=== PATIENT | female | born 2000 | race Caucasian/White ===

== ENCOUNTER 2021-11-26 03:16 | Emergency (ER) | payer BC, SELFPAY ==
[2021-11-26 03:20] VITALS: BP 133/74; PULSE 92; RESP 16; TEMP 36.7; O2SAT 100
--- NOTE | 2021-11-26 03:44 | ED.NAVMDI ---
HPI - Nausea/Vomiting/Diarrhea General Chief complaint: Nausea/Vomiting/Diarrhea Stated complaint: n/v for 2 hours Time Seen by Provider: 11/26/21 03:33 Source: patient Mode of arrival: ambulatory Limitations: no limitations History of Present Illness HPI Narrative: Patient is a 21-year-old female complaining of nausea and vomiting that started 2 hours prior to arrival. Patient describes her vomit is nonbilious nonbloody, of previously ingested food. Patient also states that she was having burning sensation, epigastric area. Patient denies any fever, chills, diarrhea, or urinary symptoms. Patient denies any chest pain or shortness of breath Related Data Allergies Allergy/AdvReac Type Severity Reaction Status Date / Time No Known Allergies Allergy Verified 11/26/21 03:23 Review of Systems Review of Systems: All systems reviewed & are unremarkable except as noted in HPI and below Constitutional: Constitutional: Denies body ache(s), Denies chills, Denies excessive sweating, Denies fatigue, Denies fever(s), Denies headache(s), Denies lethargy, Denies malaise, Denies weakness and Denies weight loss Eyes: Eyes: Denies blurry vision, Denies change in vision and Denies loss of vision ENT: Denies dizziness, Denies ear discharge, Denies headache(s), Denies lip swelling, Denies epistaxis, Denies nasal congestion, Denies neck pain, Denies throat swelling and Denies tongue swelling Cardiovascular: Cardiovascular: Denies chest pain, Denies chest pain at rest, Denies chest pain with activity, Denies diaphoresis, Denies rapid heart rate, Denies edema, Denies irregular heart rhythm, Denies lightheadedness, Denies palpitations, Denies dyspnea and Denies dyspnea on exertion Respiratory: Respiratory: Denies chest congestion, Denies cough, Denies hemoptysis, Denies dyspnea and Denies dyspnea on exertion Gastrointestinal: Gastrointestinal: Denies abdominal pain, Denies melena, Denies hematochezia, Denies diarrhea and Denies hematemesis Musculoskeletal: Musculoskeletal: Denies abnormal gait, Denies deformity, Denies joint swelling, Denies limited range of motion, Denies neck pain and Denies numbness Neurologic: Denies Abnormal speech present, Denies abnormal gait, Denies confusion, Denies dizziness, Denies headache(s), Denies focal weakness, Denies loss of vision, Denies numbness, Denies Other visual disturbances, Denies Sensory deficit (Neuro) and Denies weakness Psychiatric: Psychiatric: Denies confusion, Denies depression, Denies auditory hallucinations, Denies homicidal ideation and Denies suicidal ideation Endocrine: Endocrine: Denies cold intolerance, Denies excessive sweating, Denies fatigue, Denies heat intolerance and Denies palpitations Hematologic/Lymphatic: Hematologic/Lymphatic: Denies easy bleeding and Denies easy bruising Allergic/Immunologic: Allergic/Immunologic: Denies lip swelling, Denies throat swelling and Denies tongue swelling PMFSH Comments Past medical history: None Family history: None Social history: Vapes, occasional EtOH use, no drug use Exam Const: General: cooperative, healthy appearing, comfortable, no acute distress, well developed, alert and awake; No confusion Orientation/consciousness: oriented to person, oriented to place, oriented to time, patient oriented x3 and No confusion Limitations: no limitations HENMT: Head: normal to inspection, normocephalic and atraumatic Ears: hearing grossly normal bilaterally, TM normal on the right and TM normal on the left General nose exam: Normal external nose present, Normal nares present and No nasal discharge present Face and sinus: normal facial exam Mouth: Yes Normal oral and palatal mucosa present, Yes lip normal, Yes tongue normal and Yes oropharynx normal Throat: posterior oropharynx normal, tonsils normal and uvula midline Eyes: General: appearance normal, both eyes and all related structures Pupils: Equal, round and reactive pupils present EOM: EOMs intact bilate
[2021-11-26] MEDS: SODIUM CHLORIDE 0.9% IV 1,000 ML 999 ML IV CONT (03:52)
[2021-11-26] MEDS: ONDANSETRON INJ 4 MG/2 ML VIAL IV PUSH (03:53)
[2021-11-26 04:14] LABS: Basophils Percent Auto 0.4 % (0.2-1.2); Eosinophils Absolute Auto 0.1 K/mm3 (0-0.3); Eosinophils Percent Auto 0.8 % (0-4.4); Hemoglobin 14.4 g/dL (12.0-15.0); Immature Granulocyte Absolute 0.03 K/mm3 (0.00-0.031); Immature Granulocyte Percent A 0.4 % (0-0.5); Lymphocytes Absolute Auto 0.49 K/mm3 (0.9-3.2); Lymphocytes Percent Auto 6.6 % (18.3-44.2); Mean Corpuscular HGB Conc 33.5 g/dl (32-36); Mean Corpuscular Hemoglobin 30.2 pg (26-34); Mean Corpuscular Volume 90.1 fl (80-100); Monocytes Absolute Auto 0.3 K/mm3 (0.1-0.6); Monocytes Percent Auto 3.5 % (2.6-8.5); Neutrophils Absolute Auto 6.5 K/mm3 (1.3-6.7); Neutrophils Percent Auto 88.3 % (45.5-73.1); Platelet Count Result 209 k/mm3 (150-375); Red Blood Count 4.77 M/mm3 (4.2-5.4); Red Cell Distribution Width 11.7 % (11.5-14.5); White Blood Count 7.4 K/mm3 (4.5-10.0)
[2021-11-26 04:22] VITALS: BP 111/50; PULSE 77; RESP 18; O2SAT 100
[2021-11-26 04:30] LABS: Alanine Aminotransferase 18 U/L (4-35); Albumin Level 4.3 g/dL (3.5-5.1); Alkaline Phosphatase 48 U/L (38-126); Anion Gap 7 mmol/L (8-16); Aspartate Amino Transferase 57 U/L (14-36); Bilirubin,Total 1.3 mg/dL (0.2-1.3); Blood Urea Nitrogen 14 mg/dL (7-17); Calcium 8.5 mg/dL (8.4-10.2); Carbon Dioxide 27 mmol/L (22-30); Chloride 103 mmol/L (98-107); Estimated CRCL calculation 72 ml/min; Estimated Glomerular Filt Rate > 60; Glucose 98 mg/dL (65-110); Lipase 91 U/L (23-300); Potassium 3.9 mmol/L (3.4-5.0); Sodium 137 mmol/L (137-145)
[2021-11-26 05:08] VITALS: BP 112/62; PULSE 83; RESP 18; O2SAT 100
== END 2021-11-26 05:09 | disposition home or self-care (01) ==
PROVIDERS: Emergency Provider Emergency Medicine
DX: K29.00 Acute gastritis without bleeding (principal); R11.2 Nausea with vomiting, unspecified; F17.290 Nicotine dependence, other tobacco product, uncomplicated
CPT/HCPCS: 36415; 80053; 81025; 83690; 85025; 96361; 96374; 99284; J2405; J7030

== ENCOUNTER 2025-06-20 10:01 | Emergency (ER) | payer BC, SELFPAY ==
--- OUTSIDE RECORDS SUMMARY | 2010-11-07 19:00 | XMS_ITS | Continuity of Care Document ---
Author Organization [facility] Address [address] [place] [address] Phone Care Team Providers Care Airplane Pilot Crop Dusting Name Role Phone Conversion MD, Doctor Unavailable Unavailabl e Medications Medication Instructions Dosage Effective Dates (start - stop) Status Comments CILOXAN 0.3% DROPS 2 BID - Active treat for 1 week SULFACETAMIDE SODIUM 10% DROPS 2 TID - Active treat for 5 days ERYTHROMYCIN 5MG/G APPLICS 1 TID - Active treat for 5 days AMOXICILLIN 250MG/5ML ML 5 TID - No Longer Active AUGMENTIN 400-57MG TABS 1 BID - No Longer Active SULFAMETHOXAZOLE/TRIM ETHOPRIM 5 BID - No Longer Active AUGMENTIN 200-28.5/5 ML 5 BID - No Longer Active Advance Directives Directive Yes / No Effective Date File Name No Information Encounters Encounter Description Practice Location Reason(s) For Visit Diagnoses Date Provider Providers Copied on Encounter [facility], [address], [place], [place], [address], tel:[phone] Conversion Department No Information 6201 1 Conversion Doctor. [address], [place], [address], . [facility], [address], [place], [place], [address], tel:[phone] Anthony Bhatia PNEUMONIA, ORGANISM NOS Dec-2 5-200 3 Abhijit Mckay. [address], [address], [place], [place], [address]. tel:[phone] [facility], [address], [place], [place], [address], [place] tel:[phone] Anthony Bhatia LOCAL SKIN INFECTION NOS 7-200 0 Conversion Doctor. [facility] [place], [address], . Family History Family Member Type Diagnosis Age At Onset No Information Immunizations Vaccine Date Status Comments 16948 - Pneumococcal_PCV administered Fatemeh rce: Source Unspecified 51031 - Polio_OPV_IPV administered Source : Source Unspecified 48707 - DTaP_DTP_DT_PEDS, Hib administere d Source: Source Unspecified 44290 - Varicella administered Source: So urce Unspecified 56698 - MMR administered Source: Source Unspecified 62171 - Pneumococcal_PCV administered Fatemeh rce: Source Unspecified 03492 - Hepatitis_B administered Source: Source Unspecified 37612 - Hib administered Source: Source Unspecified 55056 - DTaP_DTP_DT_PEDS administered Fatemeh rce: Source Unspecified 35926 - Hib administered Source: Source Unspecified 29575 - Pneumococcal_PCV administered Fatemeh rce: Source Unspecified 66603 - DTaP_DTP_DT_PEDS administered Fatemeh rce: Source Unspecified 41205 - Polio_OPV_IPV administered Source : Source Unspecified 63590 - Pneumococcal_PCV administered Fatemeh rce: Source Unspecified 61085 - Polio_OPV_IPV administered Source : Source Unspecified 91311 - Hib administered Source: Source Unspecified 17905 - DTaP_DTP_DT_PEDS administered Fatemeh rce: Source Unspecified 17180 - Hepatitis_B administered Source: Source Unspecified Payers Payer name Insurance type Covered green party ID Authoriza tion(s) No Information Social History Type Description Quantity Date Captured Comments Sex Female Smoking Status No Information Chief Complaint And Reason For Visit No Information Reason For Referral Reason For Referral No Information History Of Present Illness Encounter Date Complaint History Of Prese nt Illness No Information Functional Status Date Functional Assessmen t No Information Instructions Date Instruction Additional Infor mation No Information Assessments Type Assessment Date No Information Patient Care Teams Name Effective Dates (start - stop) Status Members No Information
--- OUTSIDE RECORDS SUMMARY | 2016-05-27 04:00 | XMS_ITS | Continuity of Care Document ---
Author Organization [facility] Address [address] [place] [address] Phone Care Team Providers Care Retort Furnace Operator Name Role Phone Jarvis Billy DPM Unavailable Unavailable Allergies, Adverse Reactions, Alerts Substance Reaction Status Criticality No Known Allergies Active No Inform ation Procedures Procedure Date OFFICE/OUTPATIENT VISIT NEW Advance Directives Directive Yes / No Effective Date File Name No Information Encounters Encounter Description Practice Location Reason(s) For Visit Diagnoses Date Provider Providers Copied on Encounter OFFICE/OUTPAT IENT VISIT NEW [facility] , [address], [place], [address], [place] tel:[phone] [facility] Plantar wartPain of left foot Wenceslao Conley. [address], [place], [place], [address] . tel:[phone] Referring Provider: Layla Polk, [address], [place], [address]. tel:[phone] Family History Family Member Type Diagnosis Age At Onset Mother Problem (finding) Alive and well Father Problem (finding) Alive and well Payers Payer name Insurance type Covered democrat ID Authoriza tipurvi(s) Blue Access Choice PPO E2 OT [id number] Social History Type Description Quantity Date Captured Comments Alcohol Use Details No Caffeine Use Details Unknown Tobacco Use Status Never smoked tobacco 2015 Smoking Status Never smoker Non-Smoking Tobacco Use Details : No Details Available : No Details Available Sex Female Vital Signs Date / Time: Height Weight BMI Pulse Rate Blood Pressure Temperature Respiratory Rate Body Surface Area Head Circumference Head Circ. Percentile Wt./Az. Percentile BMI percentile Pulse Ox Inhaled Ox 10:19 AM 63.00 in 49.895 kg (110.00 lbs) 19.4 8 kg/m eter (2) 133/85 mm[Hg] 34 Chief Complaint And Reason For Visit No Information Reason For Referral Reason For Referral No Information History Of Present Illness Encounter Date Complaint History Of Prese nt Illness No Information Functional Status Date Functional Assessmen t No Information Instructions Date Instruction Additional Infor mation Discussed treatment options Rela steven to Pain of left foot Assessments Type Assessment Date assessment Plantar wart assessment Pain of left foot Patient Care Teams Name Effective Dates (start - stop) Status Members No Information
--- NOTE | 2025-06-20 10:12 | ED_ITS ---
HPI - Headache General Chief Complaint: Headache Stated Complaint: Headache/Nausea Time Seen by Provider: 06/20/25 10:25 Mode of arrival: ambulatory Limitations: no limitations History of Present Illness HPI Narrative: 25-year-old female presents with concern for headache. Reports she woke up this morning with a headache and has had nausea. She denies any vomiting. She denies history of migraines. She reports she feels like she lost memory for a while this morning. Reports she does not remember things she may have done while she was sleeping overnight. She reports 1 episode of similar memory loss that she talk to her psychologist about, they referred her to her primary and her primary with post refer to neurology but she never got that referral. She denies any thunderclap headache. Denies any vision changes. Denies weakness in any extremity. Denies trouble speaking or swallowing. She denies runny nose, stuffy nose, sore throat, cough. MD elicited complaint: headache Related Data Allergies Allergy/AdvReac Type Severity Reaction Status Date / Time No Known Allergies Allergy Verified 06/20/25 10:08 Review of Systems Review of Systems: CONSTITUTIONAL: Denies malaise, chills, or fever. Reports sweats and feeling general weakness EYES: Denies visual changes, redness, or discharge. ENT: Denies rhinorrhea, congestion, sinus pain, otalgia or sore throat. CARDIOVASCULAR: Denies chest pain, palpitations, or edema. RESPIRATORY: Denies cough or dyspnea. GASTROINTESTINAL: Denies abdominal pain, vomiting. Reports nausea MUSCULOSKELETAL: Denies back pain, joint pain, or myalgia. NEUROLOGIC: Denies numbness, weakness. Reports headache. All systems reviewed & are unremarkable except as noted in HPI and below PMFSH Comments At time of signature, agree with nursing past medical, surgical, social and family history. There is no relevant family history pertinent to the presenting complaint Exam Narrative: GENERAL: Well-appearing, well-nourished, and in no acute distress. HEAD: Normocephalic, atraumatic. EYES: PERRLA, sclera clear, and EOMI. No nystagmus. ENT: Nares clear, turbinates pink, no rhinorrhea or epistaxis. Mucous membranes moist. TM pearly garcia with sharp light reflex bilaterally; no tragal tenderness. Oropharynx without erythema or lesions. Tonsils not enlarged and without exudate. NECK: Supple. No lymphadenopathy. CHEST: No respiratory distress. Speaks in full sentences. HEART: Regular rate and rhythm. No murmur heard. Normal peripheral pulses. EXTREMITIES: Normal range of motion. No edema. Normal strength and sensation. SKIN: Warm, dry, no visible rash. NEURO: Alert and oriented x3. No focal deficits. Cranial nerves II through XII grossly intact PSYCH: Normal mood and affect Course Course Emergency Course: Patient is aware of diagnosis, understands and agrees to treatment plan. Anticipatory guidance given. Patient agrees to follow-up as directed and is aware of reasons to seek care at the emergency department. Portions of this record may have been created with voice recognition software Level of Care: Express Care Visit Vital Signs Vital signs: Reviewed. Critical Care Time Critical Care Time Critical Care Time: No Discharge Plan Discharge Clinical Impression: Headache Patient Disposition: Home Condition: Stable Instructions: Acute Headache (ED) Additional Instructions: Your rapid COVID and flu tests are negative 1) Please follow-up with your primary care doctor in the next 1-2 days. 2) If you have any worsening of symptoms or any other urgent concerns please go to the ER. 3) Please take medications as prescribed and continue taking your home medications as usual. 4) Please read and follow information included in discharg e instructions. Patient Language: Central African Prescriptions: New naproxen 500 mg tablet 500 mg PO BID PRN (Reason: pain) Qty: 20 0RF Follow-up/Referrals: UNKNOWN,DOCTOR [Primary Care Provider] Stand Alone Forms: Work/School Release IP Time of Disposition: 10:57
[2025-06-20 10:15] VITALS: BP 111/69; PULSE 65; RESP 16; TEMP 36.5; O2SAT 99
[2025-06-20 10:55] LABS: EDCOVIDSCREEN Negative (Negative); EDINFLUASCREEN Negative (Negative); EDINFLUBSCREEN Negative (Negative)
--- OUTSIDE RECORDS SUMMARY | 2025-06-20 11:22 | XMS_ITS | Clinical Summary ---
Author Organization [facility] Address [address] [place] [address] Care Team Providers Care Roof Tile Layer Name Role Phone Silverio Haskins MD Primary Care Provider Silverio Haskins MD Unavailable Spijodic Naina Unavailable Unavailable Allergies No known active allergies Medications Larissia 0.1-20 mg-mcg per tablet Take 0.1-20 mg by mouth daily 05/17/2021 Active methylphenidate ER (CONCERTA) 27 mg CR tablet Take 27 mg by mouth daily 05/11/2021 Active lamoTRIgine (LaMICtal) 100 mg tablet Take 100 mg by mouth 2 (two) times a day 05/10/2021 Active ketorolac (TORADOL) 10 mg tablet Take 1 tablet (10 mg total) by mouth every 6 (six) hours as needed for pain 20 tablet 06/16/2024 Active Active Problems No known active problems Medical History Medical History Date Comments Known health problems: none Family History Medical History Relation Name Comments No Known Problems Brother No Known Problems Daughter No Known Problems Father No Known Problems Mother No Known Problems Other No Known Problems Sister No Known Problems Son Relation Name Status Comments Brother Daughter Father Mother Other Sister Son Social History Tobacco Use Types Packs/Day Years Used Date Smoking Tobacco: Never Smokeless Tobacco: Never Alcohol Use Standard Drinks/Week Comments Never 0 (1 standard drink = 0.6 oz pur e alcohol) AUDIT-C Answer Date Recorded Frequency of Alcohol Consumption Never 11/28/2018 Average Number of Drinks Not on file 019 Frequency of Binge Drinking Not on file 11/04 Personal Safety Answer Date Recorded Have you ever been in or are you currently in a harmful physical or emotional relationship or is someone making you feel afraid or unsafe? Denies 06/16/2024 Comments Unknown Sex and Gender Information Value Date Recorded Sex Assigned at Not on file Legal Sex Female 10:15 AM CDT Gender Identity Not on file Sexual Orientation Not on file Obstetrics History Last Filed Vital Signs Vital Sign Reading Time Taken Comments Blood Pressure 104/70 06/16/2024 5:35 PM CDT Pulse 53 06/16/2024 5:35 PM CDT Temperature 36.8 C (98.3 F) 06/16/2024 2:13 PM CDT Respiratory Rate 16 06/16/2024 4:25 PM CDT Oxygen Saturation 100% 06/16/2024 5:35 PM CDT Inhaled Oxygen Concentration - - Weight 53.3 kg (117 lb 8.1 oz) 06/16/2024 2:13 P M CDT Height 160 cm (5' 3) 06/16/2024 2:13 PM CDT Body Mass Index 20.82 06/16/2024 2:13 PM CDT Plan of Treatment Health Maintenance Due Date Last Done Comments Cervical Cancer Screening 2000 Depression Screening 2000 Hepatitis C Screening 2000 Varicella Vaccines (2 of 2 - 2-dose childhood series) 2004 01/31/2001 Pneumococcal vaccine <65 (1 of 1 - PPSV23, PCV20, or PCV21) 01/20/2006 05/24/2001, 2000, 2000, Additional history exists DTaP/Tdap/Td Vaccine (5 - Tdap) 01/20/2011 05/24/2001, 2000, 2000, Additional history exists HPV Vaccines (1 - 3-dose series) 01/20/2015 Regular Well Visit/Exam 18-64 01/20/2018 Covid-19 Vaccine (3 - 2024-2 6 season) 2025 01/10/2021, 12/15/2020 Influenza Vaccine (#1) 2025 Hepatitis B Screening Completed 2000, 000 Insurance ANTHEM ACCESS CHOICE [employer] ACCESS CHOICE ANTHEM ACCESS CHOICE [facility] Address: [facility] [id number] [place] [address] Care Teams Roof Tile Layer Relationship Specialty Start Date End Date Silverio Haskins MD [address] [place] [id number] PCP - General Internal Medicine 06/16/24 Silverio Haskins MD [facility] [address] [place] [address] Internal Medicine 06/16/24 Naina Burks 12/27/24
--- OUTSIDE RECORDS SUMMARY | 2025-06-20 11:22 | XMS_ITS | Patient Health Record ---
Author Organization [facility] Address [address] [place] [address] Care Team Providers Care Dispatcher Chief Oil Name Role Phone Layla Avelar Primary Care Prov ider [phone] Reason For Referral No Information Immunizations Vaccine Route Administration Date Status Comme nts Vfc Trumenba IM Intramuscular 09/07/2018 Administered Problems Problem Type SNOMED Code ICD Code Onset Dates Problem Status W/U Status Risk Notes Problem Vaccination given ([id number]) Encounter for immunization (Z23) Active confirmed Plan Of Treatment No Information Insurance Providers Payer Name Payer Address Payer Phone Subscriber Number Group Number Insured Name Patient Relationship to Insured Coverage Start Date Coverage End Date [place] [address] [place] [address] [id number] FILIPE MANZO Natural Child - Insured has Financial Responsibility 8 RAE [place]NANDE[place] [address] [place] [address] [id number] CORINNE MANZO Natural Child - Insured has Financial Responsibility 8
--- OUTSIDE RECORDS SUMMARY | 2025-06-20 11:33 | XMS_ITS | Data Portability ---
Author Organization [facility], [facility] Address [address] , [address] [place] [address] Assessment No assessment recorded. Plan of Treatment Reminders Order Date Submit Date Provider Last Modified By Organization Details Last Modified Time Details Appointments None record ed. Lab CBC w/ auto diff 2021 023 [email or web address]-Writer [facility], [address] [place], [address], 3 15:08:45 TSH, serum or plasma 2021 023 [email or web address]-Writer [facility], [address] [place], [address], 3 15:08:45 HbA1c (hemog lobin A1c), blood 2021 023 [email or web address]-Writer [facility], [address] [place], [address], 3 15:08:45 iron + TIBC + ferrit in, serum 2021 023 [email or web address]-Writer [facility], [address] [place], [address], 3 15:08:45 pap, LB + CT/NG/ TV + reflex HPV mRNA E6/E7 2021 022 LU Semasio [facility], [address] [place], [address], 14:06:50 Referral None record ed. Procedures None record ed. Surgeries None record ed. Imaging US, pelvis , transa bdomin al + transv aginal 2021 022 [email or web address] Not available 19:53:40 US, transv aginal 2021 [email or web address] Not available 20:48:10 Medication Orders ibupro fen 600 mg tablet [facility] [address] In [facility], [address] [place] [address], [place], [address], 18:11:08 Season ique 0.15 mg-30 mcg (84)/1 0 mcg(7) tablet s,3 month dose pack 2021 [facility] [address] In [facility], [address] [place] [address], [place], [address], 18:09:15 ondans etron 8 mg disint egrati ng tablet 2021 [facility] [address] In [facility], [address] [place] [address], [place], [address], 16:55:23 ibupro fen 600 mg tablet 2021 [facility] [address], [place], [address], 17:35:53 Xulane 150 mcg-35 mcg/24 hr transd ermal patch 2021 022 [email or web address] [facility] [address] In [facility], [address] [place] [address], [place], [address], 17:36:10 Patient TargetsNo targets recorded. Patient Instructions Encounter Date Encounter Id Patient Instructions Last Modified By Organization Details Last Modified Time 02/26/2022 [id number] discussed ocp , patch , rings and hormonal iud . nbucy Not available 03/01/2022 09:51:15 07/22/2022 [id number] offered to rasmussen e ocp to drosperinone , pt declined , offered lysevelynea has rx motrin . discussed changing to kyleena nbucy Not available 08/01/2022 20:57:57 Reason for Referral None Reported. Results Created Date Observation Date Name Description Value Unit Range Abnormal Flag Note LastModifiedBy Organization Detail LastModifiedTime 02/27/20 22 03/02/2022 THINP REP PAP REFLE X HPV MRNA E6/E7 , CT/NG , TRICH clinical information: normal Opal l exam Not Available [address], [address], 03/02/2022 14:06:50 02/27/20 22 03/02/2022 THINP REP PAP REFLE X HPV MRNA E6/E7 , CT/NG , TRICH LMP: normal NONE GIVEN Not Available [address], [address], 03/02/2022 14:06:50 02/27/20 22 03/02/2022 THINP REP PAP REFLE X HPV MRNA E6/E7 , CT/NG , TRICH prev. Pap: normal NONE GIVEN Not Available [address], [address], 03/02/2022 14:06:50 02/27/20 22 03/02/2022 THINP REP PAP REFLE X HPV MRNA E6/E7 , CT/NG , TRICH prev. BX: normal NONE GIVEN Not Available [address], [address], 03/02/2022 14:06:50 02/27/20 22 03/02/2022 THINP REP PAP REFLE X HPV MRNA E6/E7 , CT/NG , TRICH source: normal Cervi x Not Available [address], [address], 03/02/2022 14:06:50 02/27/20 22 03/02/2022 THINP REP PAP REFLE X HPV MRNA E6/E7 , CT/NG , TRICH statement of adequacy: normal Satis facto ry for evalu ation . Endoc ervic al/tr ansfo rmati on zone compo nent prese nt. Age and/o r menst rual statu s not provi ded Not Available [address] [place], [address], 03/02/2022 14:06:50 02/27/20 22 03/02/2022 THINP REP PAP REFLE X HPV MRNA E6/E7 , CT/NG , TRICH interpretati on/result: normal Negat kaycee for intra epith elial lesio n or malig osiris . Not Available [address] [place], [address], 03/02/2022 14:06:50 02/27/20 22 03/02/2022 THINP REP PAP REFLE X HPV MRNA E6/E7 , CT/NG , TRICH cytotechnolo gist: normal YQ, CT( CP) CT scree kayden locat ion: [address] [address] [place] [address] Not Available [address] [address] [place], [address], 03/02/2022 14:06:50 02/27/20 22 03/02/2022 THINP REP PAP REFLE X HPV MRNA E6/E7 , CT/NG , TRICH review cytotechnolo gist: normal AMW, CT( CP) CT scree [place]den locat ion: [address] [address] [place] [address] Not Available [address] [address] [place], [address], 03/02/2022 14:06:50 02/27/20 22 03/02/2022 THINP REP PAP REFLE X HPV MRNA E6/E7 , CT/NG , TRICH comment EXPLA NATOR Y NOTE: The Pap is a scree kayden test for cervi susana cance r. It is not a diagn ostic test and is subje ct to false negat kaycee and false posit kaycee resul ts. It is most relia ble when a satis facto ry sampl e, regul marya obtai jonathan, is submi tted with relev ant clini susana findi ngs and histo ry, and when the Pap resul t is evalu ated along with histo naeem and curre nt clini susana infor clair n. Not Available [facility] [address] [address] [place], [address], 03/02/2022 14:06:50 02/27/20 22 03/02/2022 THINP REP PAP REFLE X HPV MRNA E6/E7 , CT/NG , TRICH chlamydia trachomatis RNA, tma, urogenital NOT DETECT ED not detect ed normal Not Available [facility] [address] [address] [place], [address], 03/02/2022 14:06:50 02/27/20 22 03/02/2022 THINP REP PAP REFLE X HPV MRNA E6/E7 , CT/NG , TRICH neisseria gonorrhoeae RNA, tma, urogenital NOT DETECT ED not detect ed normal Not Available [facility] [address] [address] [place], [address], 03/02/2022 14:06:50 02/27/20 22 03/02/2022 THINP REP PAP REFLE X HPV MRNA E6/E7 , CT/NG , TRICH comment The jeronimo tical perfo rmanc e antony cteri stics of this assay , when used to test SureP ath(T M) speci mens have been deter mined by [facility]. The modif icati ons have not been clear ed or appro deniz by the FDA. This assay has been valid ated pursu ant to the CLIA regul ation s and is used for clini susana purpo ses. For addit ional infor adonis leo e refer to https ://ed ucati on.qu estdi agnos tics. com/f aq/FA Q154 (This link is being provi ded for infor matio n/ educa graciela l purpo ses only. ) Not Available Sem[facility] [address] [place], [address], 03/02/2022 14:06:50 02/27/20 22 03/02/2022 THINP REP PAP REFLE X HPV MRNA E6/E7 , CT/NG , TRICH trichomonas vaginalis, ql tma, Pap vial NOT DETECT ED not detect ed normal The jeronimo tical perfo rmanc e antony cteri stics of this assay have been deter mined by [facility]. The modif icati ons have not been clear ed or appro deniz by the FDA. This assay has been valid ated pursu ant to the CLIA regul ation s and is used for clini susana purpo ses. For addit ional infor adonis leo e refer to http: //[facility] david sena.que stdia gnost ics.c om/ faq/T daysi gaitan tma (This link is being provi ded for infor matio n/ educa graciela l purpo ses only. ) Not Available Sem[facility] [address] [place], [address], 03/02/2022 14:06:50 07/28/20 22 07/22/2022 US, pelvi s No observ ation record ed. [email or web address] [address], [place], [address], 09/03/2022 12:29:08 Result Notes None recorded. Medical Equipment None Reported. Allergies No known drug allergies Medications Name Sig Start Date Stop Date Status Note LastModified by Organization Details LastModified Time prednisone 20 mg tablet TAKE 2 TABLETS BY MOUTH EVERY DAY FOR 5 DAYS 02/26 completed Not Available Not Available Not Available cyanocobala min (vit B-12) 1,000 mcg tablet TAKE 1 TABLET ONCE A DAY 02/26 completed Not Available Not Available Not Available lithium carbonate ER 300 mg tablet,exte nded release TAKE 1 TABLET BY MOUTH ONCE A DAY AT BEDTIME 02/26 completed Not Available Not Available Not Available ondansetron 8 mg disintegrat ing tablet Place 1 tablet twice a day by transling ual route as needed. 07/22 completed Not Available Not Available Not Available hydroxyzine HCl 25 mg tablet TAKE 1 TABLET BY MOUTH EVERY 6 HOURS NEEDED 02/26 completed Not Available Not Available Not Available mirtazapine 15 mg tablet TAKE 1 TABLET BY MOUTH EVERYDAY AT BEDTIME active Not Available Not Available No t Available ibuprofen 600 mg tablet TAKE 1 TABLET 3 TIMES A DAY BY ORAL ROUTE. active Not Available Not Available No t Available ondansetron 4 mg disintegrat ing tablet DISSOLVE 1 TABLET BY MOUTH EVERY 8 HOURS NEEDED FOR NAUSEA AND VOMITING 02/26 completed Not Available Not Available Not Available lamotrigine 100 mg tablet TAKE 1 TABLET BY MOUTH TWICE A DAY 02/26 completed Not Available Not Available Not Available methylpheni date ER 36 mg tablet,exte nded release 24 hr TAKE 1 TABLET BY MOUTH EVERY DAY IN THE MORNING 07/12 completed Not Available Not Available Not Available methylpheni date ER 27 mg tablet,exte nded release 24 hr TAKE 1 TABLET BY MOUTH IN THE MORNING 07/12 completed Not Available Not Available Not Available L norgest/E estradiol-E estrad 0.15 mg-30 mcg (84)/10 mcg(7) tabs,3mos TAKE 1 TABLET BY MOUTH EVERY DAY active Not Available Not Available No t Available quetiapine 50 mg tablet PLEASE SEE ATTACHED FOR DETAILED DIRECTION S 02/26 completed Not Available Not Available Not Available cholecalcif tristen (vitamin D3) 1,250 mcg (50,000 unit) capsule TAKE 1 CAPSULE BY MOUTH ONCE A WEEK FOR 3 MONTHS 02/26 completed Not Available Not Available Not Available Xulane 150 mcg-35 mcg/24 hr transdermal patch APPLY 1 PATCH EVERY WEEK BY TRANSDERM AL ROUTE FOR 7 DAYS FOR 3 WEEKS THEN OFF FOR 1 WEEK AND REPEAT 07/12 completed Not Available Not Available Not Available Larissia 0.1 mg-20 mcg tablet TAKE 1 TABLET BY MOUTH EVERY DAY 02/26 completed Not Available Not Available Not Available Vitals Date Recorded Body height Body mass index (BMI) Body weight Body temperature Systolic And Diastolic Provider Name and Address Organization Details Last Updated DateTime 02/26/2022 160.02 cm 19.7 kg/m2 80222.7 5 g 98.1 [degF] 104/60 mm[Hg] Viashali Zamora [facility] 14:37:42 Date Recorded Body height Body mass index (BMI) Body weight Body temperature Systolic And Diastolic Provider Name and Address Organization Details Last Updated DateTime 07/12/2022 160.02 cm 19.8 kg/m2 67101.3 5 g 97.7 [degF] 112/68 mm[Hg] Quin bazan [place] [facility] 2 17:37:14 Date Recorded Body height Provider Name an d Address Organization Details Last Updated DateTime 07/22/2022 160.02 cm Rancholisa Jelly [place] [facility] 07/22/2022 16:48:00 Date Recorded Body mass index (BMI) Body weight Body temperature Systolic And Diastolic Provider Name and Address Organization Details Last Updated DateTime 07/22/2022 19.1 kg/m2 51355.98 g 98 [degF] 98/64 mm[Hg] Rosa Gabe [facility] 07/22/2022 16:54:54 Social History Question Answer Notes LastModified by [employer] ion Details LastModified Time Tobacco Smoking Status Never Smoker [place] [facility] [place] 02/26/2022 14:38:20 How Many Years Have You Consumed Alcohol? 1 Information not available 02/26/2022 What Type Of Diet Are You Following? REGULAR [email or web address] Information not available 02/26/2022 What Is Your Relationship Status? Single [email or web address] Information not available 02/26/2022 Are You Sexually Active? Yes [email or web address] Information not available 02/26/2022 Sex: Unknown Functional Status Question Answer Note LastModified by [employer] ion Details LastModified Time What is your level of alcohol consumption? Occasional [email or web address] Information not available 02/26/2022 Do you or have you ever used e-cigarettes or vape? Current user of electronic cigarettes [email or web address] Information not available 02/26/2022 What is your exercise level? Moderate [email or web address] Information not available 02/26/2022 Mental Status None recorded. Family History Relationship Description Onset Age of this Age Resolved Age Notes LastModified by Organization Details LastModified Time Father No current problems or disability Not available 02/04 14:38:59 Mother No current problems or disability [email or web address] Not available 02/04 14:38:59 Medical History Condition Response ADD/ADHD Y Gynecological History Statement/Question Response Flow Heavy Date of LMP 07/19/2022 Frequency of Cycle (Q days) 28 Duration of Flow (days) 5-7 Current Control Method None Age at Menarche 12 Obstetrics History GPAL:G 0 P 0 0 0 0 Past Encounters Encounter ID Performer Location Encounter Start Date Encounter Closed Date Diagnosis/Indication Diagnosis SNOMED-CT Code Diagnosis ICD10 Code Diagnosis IMO Codes Diagnosis Note [id number] Kaya Schuler DO [address] [address] 02/26/2022 14:28:12 03/01/2022 09:53:21 Screening for malignant neoplasm of cervix 427482004 Z12.4 Surveillan ce of contraception 069567613 Z30.40 Dysmenorrhea 860097999 N 94.6 Nausea 234804009 R11.0 Gynecologi c examination 73228892 Z01.189 [id number] Kaya Schuler [address] [address] 07/12/2022 17:31:30 07/12/2022 17:56:44 Contraception care management 121737444 Z30.9 Surveillan ce of contraception 257236341 Z30.40 Dysmenorrhea 051769263 N 94.6 [id number] Kaya Schuler DO [address] [address] 07/22/2022 16:19:13 07/22/2022 17:17:02 Excessive and frequent menstruation 269101622 N92.0 pt will get later Health Concerns Section Related Observation LastModified by Organization Detai ls LastModified Time None Recorded Concern Status LastModified by Organization Details LastModified Time None Recorded Advance Directives Directive None Recorded Payers Insurance Date Sequence Insurance Name Policy Number Policy [place] Covered Member ID [place] Member ID Guarantor Name 08/21/2022 1 [place] [id number] Flaquito Beauchamp [id number] Merna Beauchamp 08/21/2022 2 [place] [id number] Alicia Beauchamp [id number] Merna Beauchamp Notes Date Note Type Note Provider Name and Address Organization Details Recorded Time 2 text/html Abnormal BleedingReported by PatientHPIFor quality, patient reportsheavy. For associated symptoms, patient reportsabdominal pain.some nausea very heavy crampingROS as noted in the HPI here for anual exam and has heavy periods Kaya Schuler DO [address] [place] [address], [phone], [facility] 03/01/2022 09:51:20 2 text/html Contraception visitReported by PatientContraceptionFor type of contraception, patient reportssatisfied with current contraception.Menstral cycleFor menstrual cycle, patient reportsnormal menses.ROS as noted in the HPI Pt here for follow up on BC patch. Pt reports irregular cycles and pelvic pain. has been off patch and bleeding x 2 1/2 weeks Kaya Schuler DO [address] [place] [address], [phone], [facility] 07/12/2022 18:12:15 2 text/html Abnormal BleedingReported by PatientHPIFor quality, patient reportsheavy. For associated symptoms, patient reportspelvic pain. For onset/timing, patient reportsevery cycle. For context, patient reportscurrent contraception:.ROS as noted in the HPI always has had heavy periods and painful cramping Kaya Schuler DO [address] [place] [address], [phone], [facility] 08/01/2022 21:00:02 OBGyn Episode No OBEpisode recorded.
== END 2025-06-20 11:02 | disposition home or self-care (01) ==
PROVIDERS: Emergency Provider Nurse Practitioner
DX: R51.9 Headache, unspecified (principal); Z20.822 Contact with and (suspected) exposure to COVID-19
CPT/HCPCS: 87426; 87804; 99213; G0463